=== PATIENT | male | born 1975 | race African-American/Black ===

== ENCOUNTER 2025-08-11 04:44 | Emergency (ER) | payer OTHER ==
[2025-08-11 05:55] LABS: Carbamazepine-Tegretol 3.3 ug/mL (4.0-12.0)
[2025-08-11 06:34] LABS: #Basophils Less than 0.03 10x3/uL (0.0-0.2); #Eosinophils 0.10 10x3/uL (0.0-0.7); #Monocytes 0.50 10x3/uL (0.11-0.59); #Neutrophils 1.88 10x3/uL (1.40-6.50); %Basophils 0.6 % (0.0-1.0); %Eosinophils 2.8 % (0.0-10.0); %Lymphocytes 29.9 % (21.0-51.0); %Monocytes 14.0 % (0.0-10.0); %Neutrophils 52.4 % (42.0-75.0); Hematocrit 39.6 % (42.0-52.0); Hemoglobin 13.8 g/dL (14.0-18.0); Mean Corpuscular Hemoglobin 31.2 pg (27.0-31.0); Mean Corpuscular Volume 89.6 fL (78.0-98.0); Platelet Count 253 10x3/uL (130-400); Red Blood Cell (RBC) Count 4.42 mill/uL (4.70-6.10); White Blood Cell (WBC) Count 3.58 10x3/uL (4.8-10.8)
[2025-08-11 06:35] LABS: ALT (SGPT) 20 U/L (Less than 45); AST (SGOT) 24 U/L (11-34); Albumin 4.3 g/dL (3.1-4.5); Alkaline Phosphatase 68 U/L (40-110); Anion Gap 19 mmol/L (10-20); BUN (Urea Nitrogen) 10 mg/dL (8.9-20.6); Bilirubin, Total 0.3 mg/dL (0.3-1.2); Calc. Creatinine Clearance 0 mL/min (70-130); Calcium 9.2 mg/dL (7.8-10.44); Carbon Dioxide 24 mmol/L (22-29); Chloride 99 mmol/L (98-107); Globulin 2.7 g/dL (2.4-3.5); Glucose 93 mg/dL (70-105); Potassium 5.1 mmol/L (3.5-5.1); Sodium 137 mmol/L (136-145)
[2025-08-11] MEDS ORDERED: Divalproex Sodium 500 MG ER.TAB ONE (08:15)
[2025-08-11] MEDS ORDERED: carBAMazepine XR 200 mg ER.Tablet PO SCH (08:30)
== END 2025-08-11 12:44 | disposition short-term general hospital (02) ==
LOC: EEVIPCON 04:44 → ERS 04:44 → EDBD 04:44 → ERS 12:44
DX: I61.5 Nontraumatic intracerebral hemorrhage, intraventricular (principal); R56.9 Unspecified convulsions; R29.703 NIHSS score 3
CPT/HCPCS: 70450; 80053; 80156; 80164; 83605; 85025; 93005